=== PATIENT | female | born 1965 | race Caucasian/White ===

== ENCOUNTER 2017-10-23 12:45 | Emergency (ER) | payer OTHER ==
[2017-10-23 12:52] VITALS: BP 122/61; PULSE 77; TEMP 98.5; BMI 20.7
--- NOTE | 2017-10-23 16:06 | PDOC ---
History of Present Illness - General History Source: Patient Exam Limitations: No Limitations - History of Present Illness Initial Comments: This is a 52 YOF with h/o Chagas disease with nonischemic cardiomyopathy, s/p ablation and defibrillator placement for v-tach (2013), CHF, HTN, HLD, and GERD who p/w a month of worsening numbness to a patch of skin on the palmar surface of her left forearm and wrist, now with an uncomfortable electricity-like sensation to the same area for the past few days. She notes many other additional symptoms that are chronic, including frontal headache (yesterday but none today), lightheadedness, and left-sided abdominal pain. She denies any chest pain, SOB, fever, chills, nausea, vomiting, diarrhea, constipation, rash, recent injuries, or other recent symptoms. She has been previously evaluated for this at an outside hospital and states she had a normal workup, and was given a neurology referral, but she states they would not see her because they do not see [id number] patients. <Waleska Bianchi - Last Filed: 10/23/17 17:14> <Chetan Beckwith - Last Filed: 10/23/17 18:28> - General Chief Complaint: Pain Stated Complaint: LT ARM PAIN/numbness/tingling Time Seen by Provider: 10/23/17 15:30 Past History - Past Medical History Cardiac Disorders: Yes (idiopathic cardiomyopathy, ventrical tachycardia, defibrilator) COPD: No HTN: Yes Hypercholesterolemia: Yes - Surgical History Cardiac Surgery: Yes (defib) - Suicide/Smoking/Psychosocial Hx Smoking History: Never smoked Have you smoked in the past 12 months: No Information on smoking cessation initiated: No Hx Alcohol Use: No Drug/Substance Use Hx: No Substance Use Type: None Hx Substance Use Treatment: No <Waleska Bianchi - Last Filed: 10/23/17 17:14> <Chetan Beckwith - Last Filed: 10/23/17 18:28> - Past Medical History Allergies/Adverse Reactions: Allergies Allergy/AdvReac Type Severity Reaction Status Date / Time No Known Allergies Allergy Unverified 10/23/17 12:52 Home Medications: Ambulatory Orders Acetaminophen [Pain Reliever] 500 mg PO Q12H PRN #0 03/09/16 Multivit-Min/Iron Fum/Folic AC [Dugfv-Pqllnmf-Zgfsixbw Tablet] 1 each PO DAILY # 0 03/09/16 Pantoprazole Sodium [Protonix -] 40 mg PO DAILY #0 03/09/16 Metoprolol Succinate [Toprol XL -] 12.5 mg PO DAILY #30 tab.sr.24h 09/13/16 Amiodarone HCl 100 mg PO DAILY 10/23/17 Buspirone HCl [Buspar -] 5 mg PO BID 10/23/17 Losartan Potassium [Cozaar -] 25 mg PO DAILY 10/23/17 Mexiletine HCl 150 mg PO BID 10/23/17 Spironolactone 12.5 mg PO DAILY 10/23/17 hydrOXYzine PAMOATE [Vistaril -] 25 mg PO BID 10/23/17 *Physical Exam - Vital Signs Last Vital Signs Temp Pulse Resp BP Pulse Ox 98.5 F 77 18 122/61 99 10/23/17 12:49 10/23/17 12:49 10/23/17 12:49 10/23/17 12:49 10/23/17 12:49 - Physical Exam General Appearance: Yes: Nourished, Appropriately Dressed, Other (mildly anxious appearing, nontoxic adult female, answering questions appropriately). No: Apparent Distress HEENT: positive: EOMI, NEHAL, Normal ENT Inspection, Normal Voice, Hearing Grossly Normal. negative: Scleral Icterus (R), Scleral Icterus (L), Nasal Congestion Neck: positive: Trachea midline, Normal Thyroid, Supple. negative: Tender, Rigid Respiratory/Chest: positive: Lungs Clear, Normal Breath Sounds, Other (AICD in place LUCW). negative: Chest Tender, Respiratory Distress, Crackles, Rhonchi, Stridor, Wheezing Cardiovascular: positive: Regular Rhythm, Regular Rate, Irregularly Irregular. negative: Edema, Murmur Gastrointestinal/Abdominal: positive: Normal Bowel Sounds, Soft. negative: Tender, Organomegaly, Pulsatile Mass, Guarding Musculoskeletal: positive: Normal Inspection. negative: Decreased Range of Motion, Vertebral Tenderness Extremity: positive: Normal Capillary Refill, Normal Inspection, Normal Range of Motion. negative: Tender, Cyanosis Integumentary: positive: Normal Color, Dry, Warm. 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, Fully Oriented, Alert, Normal Mood/ Affect, Normal Response, Motor Strength 5/5 <Waleska Bianchi - Last Filed: 10/23/17 17:14> - Vital Signs Last Vital Signs Temp Pulse Resp BP Pulse Ox 98.5 F 77 18 122/61 99 10/23/17 12:49 10/23/17 12:49 10/23/17 12:49 10/23/17 12:49 10/23/17 12:49 <Chetan Beckwith - Last Filed: 10/23/17 18:28> ED Treatment Course - LABORATORY CBC & Chemistry Diagram: 10/23/17 17:00 10/23/17 17:00 <Waleska Bianchi - Last Filed: 10/23/17 17:14> - LABORATORY CBC & Chemistry Diagram: 10/23/17 17:00 10/23/17 17:00 - ADDITIONAL ORDERS Additional order review: Laboratory Results 10/23/17 10/23/17 17:00 17:00 Sodium 141 Potassium 4.2 Chloride 102 Carbon Dioxide 30 Anion Gap 9 BUN 22 H Creatinine 0.9 Creat Clearance w eGFR > 60 Random Glucose 91 Calcium 9.2 Magnesium 2.4 Total Bilirubin 0.4 D AST 19 ALT 40 Alkaline Phosphatase 139 H Creatine Kinase 51 Troponin I < 0.02 Total Protein 7.8 Albumin 4.2 Urine Color Colorless Urine Appearance Clear Urine pH 6.0 Ur Specific Ceiba 1.003 Urine Protein Negative Urine Glucose (UA) Negative Urine Ketones Negative Urine Blood 1+ H Urine Nitrite Negative Urine Bilirubin Negative Urine Urobilinogen Negative Ur Leukocyte Esterase 3+ H Urine WBC (Auto) 71 Urine RBC (Auto) 1 10/23/17 17:00 RBC 4.53 MCV 90.6 MCHC 33.4 RDW 12.9 MPV 9.6 Neutrophils % 63.1 Lymphocytes % 24.7 D Monocytes % 5.6 Eosinophils % 6.1 H Basophils % 0.5 <Chetan Beckwith - Last Filed: 10/23/17 18:28> *DC/Admit/Observation/Transfer <Waleska Bianchi - Last Filed: 10/23/17 17:14> <Chetan Beckwith - Last Filed: 10/23/17 18:28> Diagnosis at time of Disposition: Paresthesia - Discharge Dispostion Disposition: HOME - Referrals Referrals: Shane Gifford MD [Staff Physician] - Ramses Veloz MD [Staff Physician] - - Patient Instructions Printed Discharge Instructions: DI for Carpal Tunnel Syndrome, DI for Numbness/ tingling Additional Instructions: Follow up with an orthopedic surgeon and a neurologist for further evaluation of your numbness and tingling. You may have carpal tunnel syndrome. If you experience worsening numbness, weakness, or any other concerning symptoms , return to the ER immediately. Brant un seguimiento con un cirujano ortopdico y un neurlogo para trisha mayor evaluacin de stark entumecimiento y hormigueo. Puede tener el sndrome del tnel marcelino. Si experimenta adormecimiento empeoramiento, debilidad o cualquier otro sntoma preocupante, regrese a la talita de emergencias inmediatamente. Print Language: WELSH
[2017-10-23 17:10] LABS: BASO % 0.5 % (0-2.0); EOS % 6.1 % (0-4.5); HEMOGLOBIN 13.7 GM/dL (10.7-15.3); LYMPH % 24.7 % (8-40); MCH 30.3 pg (25.7-33.7); MCHC 33.4 g/dl (32.0-36.0); MEAN CELL VOLUME 90.6 fl (80-96); MEAN PLT VOLUME 9.6 fl (7.5-11.1); MONO % 5.6 % (3.8-10.2); NEUT % 63.1 % (42.8-82.8); PLATELET COUNT 220 K/MM3 (134-434); RBC 4.53 M/mm3 (3.60-5.2); RDW 12.9 % (11.6-15.6)
[2017-10-23 17:13] LABS: URINE APPEARANCE CLEAR; URINE BILIRUBIN NEGATIVE (NEGATIVE); URINE BLOOD 1+ (NEGATIVE); URINE COLOR COLORLESS; URINE GLUCOSE (UA) NEGATIVE (NEGATIVE); URINE KETONE NEGATIVE (NEGATIVE); URINE NITRITE NEGATIVE (NEGATIVE); URINE PROTEIN NEGATIVE (NEGATIVE); URINE UROBILINOGEN NEGATIVE mg/dL (0.2-1.0)
[2017-10-23 17:15] LABS: URINE LEUK ESTERASE 3+ (NEGATIVE)
--- NOTE | 2017-10-23 18:00 | PDOC ---
Attending Attestation - Resident Resident Name: Waleska Bianchi - ED Attending Attestation I have performed the following: I have examined & evaluated the patient, The case was reviewed & discussed with the resident, I agree w/resident's findings & plan, Exceptions are as noted - HPI HPI: 10/23/17 17:55 The patient is a 52 year old female, with a significant past medical history of Chagas, cardiomyopathy, AICD and ablation (2014), CHF, hypertension, hypercholesterolemia, who presents to the emergency department with one month of increased tingling to the volar aspect of left wrist. She localizes the symptoms to a patch on her forearm which started as a numbness and has now progressed to a tingling. She denies use of medication for her symptoms. Pt denies weakness in the arm. Denies neck pain. Denies numbness/tingling/weakness in any other extremity. Denies CHEN/N/V. The patient denies chest pain, shortness of breath, headache and dizziness. The patient denies palpitations or arrhythmias. The patient denies AICD firing. The patient denies fever, chills, nausea, vomit, diarrhea and constipation. The patient denies dysuria, frequency, urgency and hematuria. Allergies: NKDA " - Physicial Exam PE: 10/23/17 17:56 GENERAL: Awake, alert, and fully oriented, in no acute distress HEAD: No signs of trauma EYES: PERRLA, EOMI, sclera anicteric, conjunctiva clear ENT: Auricles normal inspection, hearing grossly normal, nares patent, oropharynx clear without exudates. Moist mucosa NECK: Nontender, no stepoffs, Normal ROM, supple, no lymphadenopathy, JVD, or masses LUNGS: Breath sounds equal, clear to auscultation bilaterally. No wheezes, and no crackles HEART: Regular rate and rhythm, normal S1 and S2, no murmurs, rubs or gallops ABDOMEN: Soft, nontender, normoactive bowel sounds. No guarding, no rebound. No masses EXTREMITIES: Normal range of motion, no edema. No clubbing or cyanosis. No cords, erythema, or tenderness NEUROLOGICAL: Cranial nerves II through XII intact. 5/5 strength and sensation in all extremities, Normal speech, normal gait + diminished sensation on volar aspect of L wrist from wrist to mid forearm SKIN: Warm, Dry, normal turgor, no rashes or lesions noted. - Medical Decision Making 10/23/17 17:56 52 F with numbness and tingling to L wrist. Likely carpal tunnel. Pt with no significant neuro deficits other than diminished sensation to a small patch in her L wrist. Not consistent with any stroke syndrome. Not consistent with any dermatomal distribution either. Possible peripheral neuropathy. - F/u ortho or neuro
[2017-10-23 18:11] LABS: ALBUMIN 4.2 g/dl (3.4-5.0); ANION GAP 9 (8-16); BILIRUBIN,TOTAL 0.4 mg/dL (0.2-1.0); BLOOD UREA NITROGEN 22 mg/dL (7-18); CALCIUM 9.2 mg/dL (8.5-10.1); CHLORIDE 102 mmol/L (98-107); CO2 30 mmol/L (21-32); CREATININE 0.9 mg/dL (0.55-1.02); GLUCOSE,RANDOM 91 mg/dL (74-106); MAGNESIUM 2.4 mg/dL (1.8-2.4); POTASSIUM 4.2 mmol/L (3.5-5.1); SGOT/AST 19 U/L (15-37); SGPT/ALT 40 U/L (12-78); SODIUM 141 mmol/L (136-145); TOT PROT 7.8 g/dl (6.4-8.2)
[2017-10-23 18:13] LABS: ALK PHOS 139 U/L (45-117)
--- NOTE | 2017-10-24 12:06 | EKG ---
Test Reason : Blood Pressure : / mmHG Vent. Rate : 072 BPM Atrial Rate : 072 BPM P-R Int : 188 ms QRS Dur : 082 ms QT Int : 434 ms P-R-T Axes : 071 059 036 degrees QTc Int : 475 ms POOR DATA QUALITY, INTERPRETATION MAY BE ADVERSELY AFFECTED NORMAL SINUS RHYTHM NORMAL ECG WHEN COMPARED WITH ECG OF 07-MAR-2016 11:20, AL INTERVAL HAS DECREASED RIGHT BUNDLE BRANCH BLOCK IS NO LONGER PRESENT Confirmed by SUSAN KO MD ([id number]) on 10/24/2017 12:06:23 PM Referred By: Confirmed By:SUSAN KO MD
== END 2017-10-23 18:56 | disposition home or self-care (01) ==
LOC: JER 12:45
DX: R20.2 Paresthesia of skin (principal); I10 Essential (primary) hypertension; E78.00 Pure hypercholesterolemia, unspecified; I42.8 Other cardiomyopathies; B57.2 Chagas' disease (chronic) with heart involvement; Z95.810 Presence of automatic (implantable) cardiac defibrillator
CPT/HCPCS: 36415; 71046-TC-FY; 80053; 81003; 81015; 82550; 83735; 84100; 84443; 84484; 85025; 87086; 93005; 93010; 99282-25

== ENCOUNTER 2018-06-09 14:30 | Emergency (ER) | payer OTHER ==
[2018-06-09 14:47] VITALS: BP 137/83; PULSE 67; TEMP 98.5; BMI 20.7
--- NOTE | 2018-06-09 14:52 | PDOC ---
Rapid Medical Evaluation Chief Complaint: Pain, Acute Time Seen by Provider: 06/09/18 14:45 Medical Evaluation: Allergies Allergy/AdvReac Type Severity Reaction Status Date / Time No Known Allergies Allergy Unverified 06/09/18 14:45 Vital Signs Temp Pulse Resp BP Pulse Ox 98.5 F 67 18 137/83 100 06/09/18 14:46 06/09/18 14:46 06/09/18 14:46 06/09/18 14:46 06/09/18 14:46 06/09/18 14:48 The patient presents with a chief complaint of: neck pain I have performed a brief in-person evaluation of this patient. Pertinent physical exam findings: vss, stable I have ordered the following: tylenol The patient will proceed to the ED for further evaluation. 06/09/18 15:44 Discharge Disposition - Diagnosis Cervical strain - Discharge Dispostion Disposition: HOME Condition at time of disposition: Stable - Referrals Referrals: Shane Mcnulty MD [Staff Physician] - - Patient Instructions Printed Discharge Instructions: DI for Cervical Muscle Strain Additional Instructions: regresar a la talita de emergencias si los sntomas empeoran o no se resuelven. Por favor, chelly un seguimiento con la ciruga de la columna vertebral para trisha mayor evaluacin y opciones de tratamiento. l puede srinivasa Tylenol y Motrin en casa para el dolor segn las indicaciones. Seguimiento con ciruga de columna en 1-2 anthony. Print Language: INDONESIAN - Post Discharge Activity
[2018-06-09] MEDS ORDERED: ACETAMINOPHEN 325 MG TABLET (FP) PO ONE (14:53)
[2018-06-09] MEDS ORDERED: ACETAMINOPHEN 325 MG TABLET (FP) ONE (15:21)
--- NOTE | 2018-06-09 15:24 | PDOC ---
History of Present Illness - General Chief Complaint: Pain, Acute Stated Complaint: NECK PAIN Time Seen by Provider: 06/09/18 14:45 - History of Present Illness Initial Comments: 52-year-old female without comorbidities presents for evaluation of 3 days of atraumatic onset of right-sided neck pain without radicular symptoms. 06/09/18 15:21 Past History - Past Medical History Allergies/Adverse Reactions: Allergies Allergy/AdvReac Type Severity Reaction Status Date / Time No Known Allergies Allergy Unverified 06/09/18 14:45 Home Medications: Ambulatory Orders Multivit-Min/Iron Fum/Folic AC [Awnsy-Gexampd-Tdaaasog Tablet] 1 each PO DAILY # 0 03/09/16 Pantoprazole Sodium [Protonix -] 40 mg PO DAILY #0 03/09/16 Metoprolol Succinate [Toprol XL -] 12.5 mg PO DAILY #30 tab.sr.24h 09/13/16 Amiodarone HCl 100 mg PO DAILY 10/23/17 Buspirone HCl [Buspar -] 5 mg PO BID 10/23/17 Losartan Potassium [Cozaar -] 25 mg PO DAILY 10/23/17 Mexiletine HCl 150 mg PO BID 10/23/17 Spironolactone 12.5 mg PO DAILY 10/23/17 hydrOXYzine PAMOATE [Vistaril -] 25 mg PO BID 10/23/17 Cardiac Disorders: Yes (idiopathic cardiomyopathy, ventrical tachycardia, defibrilator) COPD: No HTN: Yes Hypercholesterolemia: Yes - Surgical History Cardiac Surgery: Yes (defib) - Suicide/Smoking/Psychosocial Hx Smoking History: Never smoked Have you smoked in the past 12 months: No Hx Alcohol Use: No Drug/Substance Use Hx: No Substance Use Type: None Hx Substance Use Treatment: No Review of Systems - Review of Systems Musculoskeletal: Yes: Neck Pain All Other Systems: Reviewed and Negative *Physical Exam - Vital Signs Last Vital Signs Temp Pulse Resp BP Pulse Ox 98.5 F 67 18 137/83 100 06/09/18 14:46 06/09/18 14:46 06/09/18 14:46 06/09/18 14:46 06/09/18 14:46 - Physical Exam Comments: 06/09/18 15:21 Cervical spine skin color and temperature are normal range of motion is slightly decreased. She has no midline tenderness. Mild right sided sternoclavicular and paracervical musculature spasm and tenderness. 5 out of 5 strength in bilateral upper extremities without any gross sensorimotor deficits. She is unable to tolerate Spurling maneuver. She has no meningismus. NeuroVascular intact. *DC/Admit/Observation/Transfer Diagnosis at time of Disposition: Cervical strain - Discharge Dispostion Disposition: HOME Condition at time of disposition: Stable Decision to Admit order: No - Referrals Referrals: Shane Mcnulty MD [Staff Physician] - - Patient Instructions Printed Discharge Instructions: DI for Cervical Muscle Strain Additional Instructions: regresar a la talita de emergencias si los sntomas empeoran o no se resuelven. Por favor, chelly un seguimiento con la ciruga de la columna vertebral para trisha mayor evaluacin y opciones de tratamiento. l puede srinivasa Tylenol y Motrin en casa para el dolor segn las indicaciones. Seguimiento con ciruga de columna en 1-2 anthony. Print Language: HUNGARIAN - Post Discharge Activity
== END 2018-06-09 15:34 | disposition home or self-care (01) ==
LOC: JERFT 14:30
DX: S16.1XXA Strain of muscle, fascia and tendon at neck level, initial encounter (principal); R00.0 Tachycardia, unspecified; I42.8 Other cardiomyopathies; Z95.810 Presence of automatic (implantable) cardiac defibrillator; I10 Essential (primary) hypertension; E78.00 Pure hypercholesterolemia, unspecified
CPT/HCPCS: 99281-25

== ENCOUNTER 2020-03-17 11:40 | Emergency (ER) | payer OTHER ==
[2020-03-17 12:14] VITALS: TEMP 98.8; BMI 21.7
--- NOTE | 2020-03-17 13:04 | PDOC ---
History of Present Illness - General Chief Complaint: Chest Pain Stated Complaint: Chest Pain Time Seen by Provider: 03/17/20 12:27 History Source: Patient Exam Limitations: No Limitations - History of Present Illness Initial Comments: 03/17/20 13:04 Mai Graves is a 54F with PMH Chagas disease with EF 20% s/p ablation in 2016 and ICD placement in 2018 presenting with palpitations and ICD activation today. Patient was taking a shower at 10AM when she felt palpitations, was shocked 4x and felt some chest pain and dizziness after, but did not lose consciousness or hit head. Presented to ED for further evaluation. Denies recent illness, covid- 19 infection, fever, chills, N/V/D, urinary sx. Currently feels soreness in her chest after ICD shocks but denies any other symptoms. Initially thought palpitations were related to amiodarone side effect. Has known history of cardiac arrhythmia, followed at [facility]. S/p ablation in 2016, but continued to have breakthrough palpitations, ICD placed in 2018. Last episode of palpitations 6 months ago, has been intermittently shocked since then. EP: Gross Cards: [employer]uit[employer]: amiodarone, mexilitine, losartan, buspirone, metoprolol ICD Card: [employer]: [phone] Iforia 7 VR-T DX DF-1 Serial Number: [id number] 08/18/14 Linox Smart S DX 65/15 Serial Number: [id number] 08/18/14 Past History - Medical History Allergies/Adverse Reactions: Allergies Allergy/AdvReac Type Severity Reaction Status Date / Time No Known Allergies Allergy Unverified 03/17/20 11:50 Home Medications: Ambulatory Orders Multivit-Min/Iron Fum/Folic AC [Nwags-Pgloplh-Thzamrvc Tablet] 1 each PO DAILY #0 03/09/16 Pantoprazole Sodium [Protonix -] 40 mg PO DAILY #0 03/09/16 Metoprolol Succinate [Toprol XL -] 12.5 mg PO DAILY #30 tab.sr.24h 09/13/16 Amiodarone HCl 100 mg PO DAILY 10/23/17 Buspirone HCl [Buspar -] 5 mg PO BID 10/23/17 Losartan Potassium [Cozaar -] 25 mg PO DAILY 10/23/17 Mexiletine HCl 150 mg PO BID 10/23/17 Cardiac Disorders: Yes (idiopathic cardiomyopathy, ventrical tachycardia,defibrilator) COPD: No HTN: Yes Hypercholesterolemia: Yes - Surgical History Cardiac Surgery: Yes (defib) - Immunization History Immunization Up to Date: Yes - Psycho-Social/Smoking History Smoking History: Never smoked Have you smoked in the past 12 months: No - Substance Abuse Hx (Audit-C & DAST Scrn) How often the patient has a drink containing alcohol: Never Score: In Men: 4 or > Positive; In Women: 3 or > Positive: 0 Screen Result (Pos requires Nsg. Audit-10AR): Negative In the last yr the pt used illegal drug/Rx for NonMed reason: No Score: Yes response is considered Positive: 0 Screen Result (Positive result requires Nsg. DAST-10): Negative Review of Systems - Review of Systems Able to Perform ROS?: Yes Constitutional: No: Symptoms Reported HEENTM: No: Symptoms Reported Respiratory: No: Symptoms reported Cardiac (ROS): Yes: Chest Pain, Irregular Heart Rate, Palpitations ABD/GI: No: Symptoms Reported : No: Symptoms Reported Musculoskeletal: No: Symptoms Reported Integumentary: No: Symptoms Reported Neurological: No: Symptoms reported Endocrine: No: Symptoms Reported Hematologic/Lymphatic: No: Symptoms Reported All Other Systems: Reviewed and Negative *Physical Exam - Vital Signs Last Vital Signs Temp Pulse Resp BP Pulse Ox 98.8 F 79 16 149/88 98 03/17/20 18:24 03/17/20 18:24 03/17/20 18:24 03/17/20 18:24 03/17/20 18:15 - Physical Exam General Appearance: Yes: Nourished, Appropriately Dressed. No: Apparent Distress HEENT: positive: EOMI, NEHAL, Normal Voice, Symmetrical, Pharynx Normal. negative: Scleral Icterus (R), Scleral Icterus (L) Neck: positive: Trachea midline, Normal Thyroid, Rigid, Supple. negative: Tender, Lymphadenopathy (R), Lymphadenopathy (L) Respiratory/Chest: positive: Lungs Clear, Normal Breath Sounds, Other (chest tenderness). negative: Chest Tender, Respiratory Distress, Accessory Muscle Use, Crackles, Rales, Rhonchi, Stridor, Wheezing Cardiovascular: positive: Regular Rhythm, Regular Rate. negative: Murmur Gastrointestinal/Abdominal: positive: Normal Bowel Sounds, Flat, Soft. negative: Tender, Organomegaly, Pulsatile Mass Musculoskeletal: positive: Normal Inspection. negative: CVA Tenderness, CVA Tenderness (R), CVA Tenderness (L), Decreased Range of Motion Extremity: positive: Normal Capillary Refill, Normal Inspection, Normal Range of Motion. negative: Tender, Pelvis Stable Integumentary: positive: Normal Color, Dry, Warm Neurologic: positive: Fully Oriented, Alert, Normal Mood/Affect, Normal Response, Motor Strength 01/18 ED Treatment Course - LABORATORY CBC & Chemistry Diagram: 03/17/20 12:00 03/17/20 12:00 - ADDITIONAL ORDERS Additional order review: Laboratory Results 03/17/20 12:00 Magnesium 2.4 B-Natriuretic Peptide 440.1 H 03/17/20 03/17/20 13:49 12:00 RBC 4.22 MCV 92.1 MCHC 33.0 RDW 13.6 MPV 9.5 Neutrophils % 66.9 Lymphocytes % 20.5 Monocytes % 9.1 Eosinophils % 3.0 Basophils % 0.5 POC Glucometer 102 - RADIOLOGY Radiology Studies Ordered: Category Date Time Status CHEST X-RAY PORTABLE* [RAD] Stat Radiology 03/17/20 12:27 Completed - Medications Given in the ED: ED Medications Discontinued Medications Generic Name Dose Route Start Last Admin Trade Name Freq PRN Reason Stop Dose Admin Aspirin 324 mg 03/17/20 14:40 03/17/20 14:47 Asa - PO 03/17/20 14:41 324 mg ONCE ONE Administration Amiodarone HCl 150 mg/ 103 mls @ 618 mls/hr 03/17/20 16:50 03/17/20 18:10 Dextrose IVPB 03/17/20 16:59 618 mls/hr ONCE ONE Administration Amiodarone HCl 450 mg/ 250 mls @ 33.333 mls/hr 03/17/20 16:50 03/17/20 18:20 Dextrose IVPB 03/18/20 00:19 1 mg/min TITR ONE 33.333 mls/hr Administration Protocol 1 MG/MIN Medical Decision Making - Medical Decision Making 03/17/20 18:13 Patient presents with chest pain, palpitations, and ICD activation x4 today. Now here for cardiac evaluation. Possible tachyarrhythmia vs. ICD malfunction needs to be elucidated. Getting CBC, CMP, CP, ECG, CXR, TSH, Mag, for evaluation cardiac etiology. Called [employer] for interrogation. VSS, no arrthythmia. Interrogation shows 3 mins sustained VT unresolved by pacing x9 or with defibrillation x4, patient back to R spontaneously. Patient feeling chest pain 2/2 shocks but no other palpitations. Labs notable for: - trop 0.22 - CBC WNL - CMP WNL CXR WNL ECG NSR with RBBB, no other abnormalities. Given severity of arrhythmia, patient requires EP evaluation and likely 2nd ablation and ICD maintenance. Called office of Dr. Berman, spoke to on-calll cardiology attending who recommended transfer to [facility], unable to reach EP service or Dr. Berman, was unable to accept transfer himself. Discussed case with CCU fellow Dr. Beasley with [facility] cardiology, aware of patient and need for EP examination. Accepted by Dr. Huff for ED to ED transfer. Patient accepts transfer, transferred from ED. Discharge - Discharge Information Problems reviewed: Yes Clinical Impression/Diagnosis: Chagas disease Chest pain Qualifiers: Chest pain type: unspecified Qualified Code(s): R07.9 - Chest pain, unspecified Condition: Stable Disposition: TRANSFER ACUTE CARE/OTHER HOSP - Follow up/Referral Referrals: Alexandra Jj [Primary Care Provider] - - Patient Discharge Instructions - Post Discharge Activity
[2020-03-17 13:06] LABS: BASO % 0.5 % (0-2.0); HEMATOCRIT 38.9 % (32.4-45.2); HEMOGLOBIN 12.8 GM/dL (10.7-15.3); LYMPH % 20.5 % (8-40); MCH 30.4 pg (25.7-33.7); MEAN CELL VOLUME 92.1 fl (80-96); MEAN PLT VOLUME 9.5 fl (7.5-11.1); MONO % 9.1 % (3.8-10.2); NEUT % 66.9 % (42.8-82.8); PLATELET COUNT 234 K/MM3 (134-434); RBC 4.22 M/mm3 (3.60-5.2); RDW 13.6 % (11.6-15.6); WHITE BLOOD COUNT 6.2 K/mm3 (4.0-10.0)
[2020-03-17 13:35] LABS: N-TERMINAL BNP 440.1 pg/ml (5-125)
[2020-03-17 13:37] LABS: ALBUMIN 4.1 g/dl (3.4-5.0); BILIRUBIN,TOTAL 0.9 mg/dL (0.2-1); BLOOD UREA NITROGEN 24.4 mg/dL (7-18); CALCIUM 9.3 mg/dL (8.5-10.1); CREATININE 1.2 mg/dL (0.55-1.3); POTASSIUM 4.5 mmol/L (3.5-5.1); TOT PROT 7.3 g/dl (6.4-8.2)
--- NOTE | 2020-03-17 14:23 | PDOC ---
Documentation entered by Antonina Bryson SCRIBE, acting as scribe for Karina Ring MD. Karina Ring MD: This documentation has been prepared by the Haider luna Nirvannie, SCRIBE, under my direction and personally reviewed by me in its entirety. I confirm that the documentation accurately reflects all work, treatment, procedures, and medical decision making performed by me. Attending Attestation - Resident Resident Name: Rubén Whitney - ED Attending Attestation I have performed the following: I have examined & evaluated the patient, The case was reviewed & discussed with the resident, I agree w/resident's findings & plan, Exceptions are as noted - HPI HPI: 03/17/20 13:15 The patient is a 54 year old female with a significant past medical history of Chagas disease with nonischemic cardiomyopathy, s/p ablation and defibrillator placement for v-tach (14), CHF, HTN, HLD, and GERD who presents to the ED s/p 4 defibrillator shocks with left-sided chest pressure at 10am this morning. [employer]: [phone] Iforia 7 VR-T DX DF-1 Serial Number: [id number] 08/18/14 Linox Smart S DX 65/15 Serial Number: [id number] 08/18/14 Dr. Yaakov Coley [phone] - Physicial Exam PE: 03/17/20 14:06 Agree with resident exam. Patient is alert and oriented and in no acute distress. CV: rr no m/r/g pulm: cta b/l abdomen soft, non tender, non distended ext no edema or tenderness. - Medical Decision Making 03/17/20 14:08 Pt presents to the ED complaining of 4 shocks from her AICD, lightheadness and mild chest pain. Pacer interrogation shows sustained VT of 3 min, not resolved by pacing x 9 or shocks x4. Returned to sinus spontaneously. Concern for accessory pathway, ACS, less likely electrolyte disturbance. EKG shows sinus rhythm with normal QT. Will discuss with primary wrapper stripper--possible transfer to [facility] for possible EP study. 03/17/20 14:12 03/17/20 14:20 Discharge - Discharge Information Problems reviewed: Yes Clinical Impression/Diagnosis: Chagas disease Chest pain Qualifiers: Chest pain type: unspecified Qualified Code(s): R07.9 - Chest pain, unspecified Condition: Stable Disposition: TRANSFER ACUTE CARE/OTHER HOSP - Follow up/Referral Referrals: Alexandra Jj [Primary Care Provider] - - Patient Discharge Instructions - Post Discharge Activity
[2020-03-17] MEDS ORDERED: ASPIRIN 81 MG CHEWABLE TABLETS PO ONE (14:40)
[2020-03-17] MEDS ORDERED: ASPIRIN 81 MG CHEWABLE TABLETS ONE (14:44)
[2020-03-17 15:52] LABS: MAGNESIUM 2.4 mg/dL (1.8-2.4)
[2020-03-17] MEDS ORDERED: AMIODARONE HCL INJECTION 150 MG in DEXTROSE 5%-WATER - 100 ML IVPB ONE (16:50)
[2020-03-17] MEDS ORDERED: AMIODARONE HCL INJECTION 450 MG in DEXTROSE 5%-WATER - 241 ML IVPB ONE (16:50)
[2020-03-17] MEDS ORDERED: AMIODARONE HCL INJECTION 450 MG in DEXTROSE 5%-WATER - 241 ML IVPB SCH (17:00)
[2020-03-17] MEDS ORDERED: AMIODARONE IN DEXTROSE,ISO-OSM 360 MG/200 ML BAG ONE (18:06)
[2020-03-17] MEDS ORDERED: AMIODARONE HCL 150 MG/3 ML VIAL ONE (18:06)
[2020-03-17 18:24] VITALS: BP 149/88; PULSE 79
--- NOTE | 2020-03-18 10:50 | EKG ---
Test Reason : Blood Pressure : / mmHG Vent. Rate : 082 BPM Atrial Rate : 082 BPM P-R Int : 208 ms QRS Dur : 132 ms QT Int : 372 ms P-R-T Axes : 068 021 028 degrees QTc Int : 434 ms NORMAL SINUS RHYTHM WITH 1ST DEGREE A-V BLOCK RIGHT BUNDLE BRANCH BLOCK ABNORMAL ECG WHEN COMPARED WITH ECG OF 23-OCT-2017 15:54, RIGHT BUNDLE BRANCH BLOCK IS NOW PRESENT Confirmed by SHAMA OLSON MD ([id number]) on 03/18/2020 10:50:34 AM Referred By: Confirmed By:SHAMA OLSON MD
== END 2020-03-17 18:30 | disposition short-term general hospital (02) ==
LOC: JER 11:40
PROC: 3E033GC Introduction of Other Therapeutic Substance into Peripheral Vein, Percutaneous Approach (ICD-10-PCS; principal; 2020-03-17)
DX: R07.9 Chest pain, unspecified (principal); B57.2 Chagas' disease (chronic) with heart involvement
CPT/HCPCS: 36415; 71045-TC-FY; 80053; 82550; 82962; 83735; 83880; 84484; 85025; 93005; 93010; 99285-25

== ENCOUNTER 2022-05-05 17:51 | Emergency (ER) | payer OTHER ==
[2022-05-05 18:00] VITALS: BP 137/65; PULSE 66; RESP 18; TEMP 98.1; BMI 20.7
[2022-05-05] MEDS ORDERED: SODIUM CHLORIDE 0.9% 500 ML INFUS.BAG IV ONE (19:07)
[2022-05-05] MEDS ORDERED: ACETAMINOPHEN 1000 MG/100 ML BAG IVPB ONE (19:07)
[2022-05-05 19:48] LABS: THROAT:GRP A STREP NOT DETECTED (NOTDETECTED)
== END 2022-05-05 21:27 | disposition home or self-care (01) ==
LOC: JER 17:51
DX: U07.1 COVID-19 (principal)
CPT/HCPCS: 0241U-QW; 70450-TC; 71046-TC-FY; 87651; 99285-25